=== PATIENT | female | born 1970 | race Caucasian/White ===

== ENCOUNTER → 2018-02-02 | Emergency (ER) | payer OTHER ==
[~2018-02-02] VITALS: Ht 170.2 cm; Wt 104.3 kg
[~2018-02-02] MED LIST: FLUCONAZOLE150 MG PO; LEVAQUIN750 MG PO; SYNTHROID200 MCG PO; URETRON D/S TAB1 TAB PO
== END | disposition left against medical advice (07) ==
LOC: ER 12:28
DX: M25.571 Pain in right ankle and joints of right foot (principal)

== ENCOUNTER 2018-05-21 15:14 | Emergency (ER) | payer OTHER ==
[~2018-05-21] VITALS: Ht 170.2 cm; Wt 99.8 kg
== END 2018-05-21 19:58 | disposition home or self-care (01) ==
LOC: ER 15:14
DX: S93.491A Sprain of other ligament of right ankle, initial encounter (principal); S91.342A Puncture wound with foreign body, left foot, initial encounter; W26.8XXA Contact with other sharp object(s), not elsewhere classified, initial encounter; X50.0XXA Overexertion from strenuous movement or load, initial encounter; Y93.89 Activity, other specified; Y92.89 Other specified places as the place of occurrence of the external cause; Y99.8 Other external cause status

== ENCOUNTER 2023-01-30 07:27 | Inpatient (IN) | payer OTHER ==
[~2023-01-30] VITALS: Ht 170.2 cm; Wt 102.1 kg
--- NOTE | 2023-01-30 08:02 | NUR ---
PTE ALERTA Y ORIENTADA X3. PTE REFIERE ASTHMA Y DOLOR ABDOMINAL
--- NOTE | 2023-01-30 08:04 | NUR ---
PTE REFIERE ESTAR BAJO TRATAMIENTO MEDICO PARA EL ASTHMA.
--- NOTE | 2023-01-30 09:05 | NUR ---
PTE EVALUADA POR EL JERROD GUZMANIE ORDENA TRATAMINTO LA CUAL SE EJECUTA POR MS.FUENTE DIANE . SE NOTIFICA A EL PERSONAL TEREAPIA RESPIRATORIA Y SE MANTIENE BAJO OBSERVACION.
--- NOTE | 2023-01-30 15:34 | NUR ---
SE RECIBE PTE DEL TURNO ANTERIOR, ALERTA Y ORIENTADA EN CHRIST KOBY ESFERAS, UBICADA EN CONNIE, NIVEL MAS BAJO, ROBERTSON DE IDENTIFICACION Y BARANDAS ELEVADAS POR PRECAUCION. SE OBSERVA CON BUEN PATRON RESPIRATORIO. S/L PATENTE Y CHARLES DE EDEMA O ERITEMA. PENDIENTE CONSULTA CON DR CASH (MEDICINA INTERNA). TERAPIAS RESPIRATORIAS NOTIFICADAS A PERSONAL DE TURNO (MS ZUÑIGA).
[2023-02-05] MEDS ORDERED: PROAIR RESPICL90 MCG (21:28)
== END 2023-02-04 12:11 | disposition home or self-care (01) | DRG 342 ==
LOC: ER 07:27 → MEDI 17:27
PROVIDERS: Surgery; ADMIT Internal Medicine; ATTEND Internal Medicine
PROC: BW21YZZ Computerized Tomography (CT Scan) of Abdomen and Pelvis using Other Contrast (ICD-10-PCS; 2023-01-30)
PROC: 0DTJ4ZZ Resection of Appendix, Percutaneous Endoscopic Approach (ICD-10-PCS; principal; 2023-01-31 13:00)
DX: K35.890 Other acute appendicitis without perforation or gangrene (principal); J45.901 Unspecified asthma with (acute) exacerbation; E03.9 Hypothyroidism, unspecified; E66.01 Morbid (severe) obesity due to excess calories; Z20.822 Contact with and (suspected) exposure to COVID-19

== ENCOUNTER 2023-02-05 21:13 | Inpatient (IN) | payer OTHER ==
[~2023-02-05] VITALS: Ht 170.2 cm; Wt 102.1 kg
[2023-02-05] MEDS ORDERED: PROAIR RESPICL90 MCG (21:28)
== END 2023-02-11 17:51 | disposition home or self-care (01) | DRG 203 ==
LOC: ER 21:13 → MEDI 02-06 13:39
PROVIDERS: ADMIT Specialist; ATTEND Specialist
PROC: BB24Y0Z Computerized Tomography (CT Scan) of Bilateral Lungs using Other Contrast, Unenhanced and Enhanced (ICD-10-PCS; 2023-02-05)
PROC: 3E0F7GC Introduction of Other Therapeutic Substance into Respiratory Tract, Via Natural or Artificial Opening (ICD-10-PCS; 2023-02-06)
PROC: B343ZZ3 Ultrasonography of Right Common Carotid Artery, Intravascular (ICD-10-PCS; principal; 2023-02-07)
PROC: B246ZZZ Ultrasonography of Right and Left Heart (ICD-10-PCS; 2023-02-07)
DX: J98.01 Acute bronchospasm (principal); R09.02 Hypoxemia; D72.828 Other elevated white blood cell count; G89.18 Other acute postprocedural pain; E03.9 Hypothyroidism, unspecified

== ENCOUNTER 2023-09-10 07:06 | Emergency (ER) | payer OTHER ==
[~2023-09-10] VITALS: Ht 170.2 cm; Wt 103.4 kg
[~2023-09-10 07:06] MED LIST changes: +PROAIR RESPICL90 MCG
[2023-09-10 08:34] LABS: HEMATOCRIT 36.2 % (36.0-45.00); HEMOGLOBIN 11.4 g/dL (12.0-15.00); MEAN CELL VOLUME 79.9 fL (80.00-100.00); MEAN CORPUSCULAR HEMOGLOBIN 25.2 pg (27.00-32.0); MEAN CORPUSCULAR HGB CONC 31.6 g/dl (32.0-36.0); PLATELET COUNT 271 K/uL (150-450); RED BLOOD COUNT 4.53 M/uL (4.00-6.00)
[2023-09-10 08:34] LABS: PH,URINE 5.5 (5.0-8.0); URINE APPEARANCE Cloudy; URINE BILIRRUBIN Negative (NEGATIVE); URINE BLOOD Negative; URINE COLOR Yellow; URINE GLUCOSE Negative (NEGATIVE); URINE LEUKOCYTE Negative; URINE NITRATE Negative; URINE PROTEIN Negative (NEGATIVE)
[2023-09-10 08:38] LABS: URINE WBC 28.1 uL (0.0-23.2)
[2023-09-10 08:46] LABS: URINE EPITHELIAL CELLS > 201.7 uL (0.0-38.8); URINE RBC 1.8 uL (0.0-20.8)
[2023-09-10 09:10] LABS: ALBUMIN 3.7 gm/dL (3.4-5.0); BILIRUBIN TOTAL 0.36 mg/dL (0.3-1.2); CALCIUM 8.6 mg/dL (8.5-10.1); CREATININE SERUM 0.85 mg/dL (0.55-1.02); GFR 69.96; GLOBULINA 3.9 G/DL (2.4-3.5); POTASSIUM 3.75 mEq/L (3.5-5.1); TOTAL PROTEIN 7.6 gm/dL (6.4-8.2)
== END 2023-09-10 13:21 | disposition home or self-care (01) ==
LOC: ER 07:07
PROVIDERS: General Practice
DX: N83.8 Other noninflammatory disorders of ovary, fallopian tube and broad ligament (principal)